=== PATIENT | female | born 1950 | race African-American/Black ===

== ENCOUNTER 2025-08-20 21:06 | Inpatient (IN) | payer MEDICARE, OTHER ==
[~2025-08-20] VITALS: Ht 157.5 cm; Wt 67.6 kg
[2025-08-20] MEDS ORDERED: LORAZEPAM INJ 2 MG/ML VIAL ONE (21:23)
[2025-08-20] MEDS: LORAZEPAM INJ 2 MG/ML VIAL IM ONE (21:25)
[2025-08-20] MEDS ORDERED: FAMO20TA8 PO (22:15)
[2025-08-20] MEDS ORDERED: LORA-259 PO (22:15)
[2025-08-20] MEDS ORDERED: QUET25TA PO (22:15)
[2025-08-20] MEDS ORDERED: ASPI-1169 PO (22:15)
[2025-08-20 22:47] LABS: PLATELET COUNT (AUTO) 139 K/uL (150-450); RED BLOOD CELL COUNT(AUTO) 4.37 MIL/uL (4.0-5.2); RED CELL DISTRIBUTION WIDTH 13.7 % (11.5-15.0); WHITE BLOOD COUNT (AUTO) 5.0 K/uL (4.3-11.0)
[2025-08-20 22:52] LABS: APPEARANCE,URINE CLEAR (CLEAR); BLOOD, URINE NEGATIVE Ery/uL (NEGATIVE); LEUKOCYTE ESTERASE ,URINE NEGATIVE (NEGATIVE); NITRITE, URINE NEGATIVE (NEGATIVE); UGLUCOSE NEGATIVE (NEGATIVE)
[2025-08-20 22:53] LABS: CALCIUM, SERUM 10.7 mg/dL (8.5-10.1); CREATININE 0.8 mg/dL (0.6-1.3); SODIUM SERUM 140 mmol/L (136-145); UREA NITROGEN, BLOOD 13 mg/dL (7-18)
[2025-08-20 22:59] LABS: ALCOHOL, BLOOD < 3 mg/dL (0-10); ASPARTATE AMINOTRANSFERASE 17 U/L (15-37); TOTAL PROTEIN, SERUM 7.3 g/dL (6.4-8.2)
[2025-08-20 23:04] LABS: ADD URINE CULTURE NO; SQUAMOUS EPITHELIAL CELL,UR 0-2 /HPF (None Seen)
[2025-08-20 23:05] LABS: AMPHETAMINE, URINE NEGATIVE (NEGATIVE); BARBITURATE, URINE NEGATIVE (NEGATIVE); BENZODIAZEPINE, URINE NEGATIVE (NEGATIVE); CANNABINOID, URINE NEGATIVE (NEGATIVE); COCCAINE, URINE NEGATIVE (NEGATIVE); OPIATE, URINE NEGATIVE (NEGATIVE); URINE AMORPHOUS URATE Moderate /HPF (None Seen)
[2025-08-21 02:00] VITALS: O2SAT 98
[2025-08-21] MEDS ORDERED: ZOLPIDEM TARTRATE 5 MG TABLET PO PRN ×2 (03:30)
[2025-08-21] MEDS ORDERED: MAG HYDROX/AL HYDROX/SIMETH 30 ML UDC PO PRN (03:30)
[2025-08-21] MEDS ORDERED: MAGNESIUM HYDROXIDE 30 ML UDC PO PRN (03:30)
[2025-08-21] MEDS ORDERED: QUETIAPINE FUMARATE 25 MG TABLET PO PRN ×2 (03:30)
[2025-08-21] MEDS ORDERED: ACETAMINOPHEN 325 MG TABLET PO PRN (03:30)
[2025-08-21] MEDS: BLOOD SUGAR DIAGNOSTIC 1 EACH STRIP IN ONE (03:41)
[2025-08-21 08:00] VITALS: BP 121/88; TEMP 98.2; O2SAT 97
[2025-08-21] MEDS ORDERED: MULT-213 PO (08:32)
[2025-08-21] MEDS ORDERED: NA P133E RC (08:32)
[2025-08-21] MEDS ORDERED: BISA10SU11 RC (08:32)
[2025-08-21] MEDS ORDERED: ACET325T53 PO (08:32)
[2025-08-21] MEDS ORDERED: MAGN400O6 PO (08:32)
[2025-08-21] MEDS: ASPIRIN 81 MG TAB.CHEW PO SCH (09:00)
[2025-08-21] MEDS: FAMOTIDINE (20 MG) 20 MG TABLET PO SCH (09:00)
[2025-08-21] MEDS: OLANZAPINE 2.5 MG TABLET PO SCH ×2 (11:00→20:20)
[2025-08-21 16:00] VITALS: BP 137/81; TEMP 97.9; O2SAT 98
[2025-08-26] MEDS: OLANZAPINE 2.5 MG TABLET PO SCH (21:46)
[2025-08-27] MEDS: OLANZAPINE 2.5 MG TABLET PO SCH (08:55)
[2025-08-27] MEDS: OLANZAPINE ZYDIS 5 MG TAB.RAPDIS PO PRN (12:33)
[2025-08-27] MEDS: OXCARBAZEPINE 150 MG TABLET PO SCH (17:10)
[2025-08-28] MEDS: OLANZAPINE 2.5 MG TABLET PO SCH ×2 (14:15→20:28)
[2025-08-28 20:18] VITALS: BP 129/78; TEMP 98; O2SAT 98
[2025-08-29] MEDS: OXCARBAZEPINE 150 MG TABLET PO SCH (15:10)
[2025-08-29 22:00] VITALS: BP 121/76; TEMP 98.2; O2SAT 98
[2025-08-30 22:30] VITALS: BP 125/75; TEMP 98; O2SAT 98
[2025-09-01] MEDS: OLANZAPINE 10 MG TABLET PO SCH (20:27)
[2025-09-02 20:05] VITALS: TEMP 97.8; O2SAT 100
[2025-09-02] MEDS: OXCARBAZEPINE 150 MG TABLET PO SCH (20:06)
== END 2025-09-03 11:00 | DRG 885 ==
LOC: ER 21:13 → GPS 08-21 01:34
PROVIDERS: ADMIT Psychiatry & Neurology Psychiatry; ATTEND Nurse Practitioner Family
DX: F29 Unspecified psychosis not due to a substance or known physiological condition (principal); F03.92 Unspecified dementia, unspecified severity, with psychotic disturbance; F39 Unspecified mood [affective] disorder; I10 Essential (primary) hypertension; F03.93 Unspecified dementia, unspecified severity, with mood disturbance; K21.9 Gastro-esophageal reflux disease without esophagitis; Z91.199 Patient's noncompliance with other medical treatment and regimen due to unspecified reason; Z73.6 Limitation of activities due to disability; Z20.822 Contact with and (suspected) exposure to COVID-19; R73.9 Hyperglycemia, unspecified; F25.9 Schizoaffective disorder, unspecified
CPT/HCPCS: 36415; 80048-TC; 80076-TC; 81001; 82962-TC; 85025-TC; 87081-TC; 97112-TC; 97116-TC; 97530-TC; A6403; G0480; J1200; J2060